=== PATIENT | male | born 1985 | race Caucasian/White ===

== ENCOUNTER 2017-05-08 08:46 | Emergency (ER) | payer OTHER ==
[~2017-05-08] VITALS: Ht 180.3 cm; Wt 70.3 kg
[2017-05-08] MEDS ORDERED: Prednisone20 MG PO (09:57)
== END 2017-05-08 10:14 | disposition home or self-care (01) ==
LOC: ER 08:46
DX: L23.7 Allergic contact dermatitis due to plants, except food (principal); F17.210 Nicotine dependence, cigarettes, uncomplicated
CPT/HCPCS: 96372; 99283; J3301

== ENCOUNTER 2017-09-13 07:02 | Emergency (ER) | payer OTHER ==
[~2017-09-13] VITALS: Ht 180.3 cm; Wt 70.3 kg
[~2017-09-13 07:02] MED LIST: Prednisone20 MG PO
[2017-09-13] MEDS ORDERED: NAPR550 PO (07:55)
[2017-09-13] MEDS ORDERED: PERIDEX15 ML MM (07:55)
[2017-09-13] MEDS ORDERED: Amoxicillin500 MG PO (07:55)
== END 2017-09-13 08:09 | disposition home or self-care (01) ==
LOC: ER 07:02
DX: K02.9 Dental caries, unspecified (principal); F17.210 Nicotine dependence, cigarettes, uncomplicated
CPT/HCPCS: 96372; 99283; J1885

== ENCOUNTER 2021-07-11 16:50 | Emergency (ER) | payer OTHER ==
[~2021-07-11] VITALS: Ht 180.3 cm; Wt 68.0 kg
[~2021-07-11 16:50] MED LIST changes: +Amoxicillin500 MG PO; +NAPR550 PO; +PERIDEX15 ML MM
[2021-07-11 18:51] LABS: Source, Urine Clean Catch
[2021-07-11 19:03] LABS: Appearance, Urine Clear (Clear); Bilirubin, Urine Neg (Neg); Blood, Urine Neg (Neg); Color, Urine Amber (P-Yellow); Glucose Qualitative, Urine Neg (Neg); Ketones, Urine Neg (Neg); Leukocyte Esterase, Urine Neg (Neg); Nitrite, Urine Neg (Neg); Protein, Urine Neg (Neg); Specific Gravity, Urine 1.015 (1.003-1.022); Urobilinogen, Urine NORM (Normal)
== END 2021-07-11 19:25 | disposition home or self-care (01) ==
LOC: ER 16:50
PROVIDERS: Physician Assistant
DX: S30.0XXA Contusion of lower back and pelvis, initial encounter (principal); F17.210 Nicotine dependence, cigarettes, uncomplicated; W19.XXXA Unspecified fall, initial encounter
CPT/HCPCS: 72100; 81003; 99283-25; A9270

== ENCOUNTER 2022-01-26 10:44 | Emergency (ER) | payer OTHER ==
[~2022-01-26] VITALS: Ht 180.3 cm; Wt 72.6 kg
[2022-01-26] MEDS ORDERED: HYDR1TAB94 PO (11:45)
[2022-01-26] MEDS ORDERED: AMOCLA875 PO (11:45)
== END 2022-01-26 12:00 | disposition home or self-care (01) ==
LOC: ER 10:44
DX: S61.552A Open bite of left wrist, initial encounter (principal); F17.210 Nicotine dependence, cigarettes, uncomplicated; W54.0XXA Bitten by dog, initial encounter
CPT/HCPCS: 73110; A9270